=== PATIENT | male | born 1970 | race Caucasian/White ===

== ENCOUNTER 2017-12-02 12:24 | Emergency (ER) | payer BC ==
[2017-12-02 14:34] VITALS: BP 139/87
--- NOTE | 2017-12-02 16:03 | UC ---
Hip/Pelvis Pain - HPI Summary HPI Summary: 47 y/o male presents to the urgent care c/o Left hip pain and left lateral side of rib pain s/p fall on ice this morning around 1000AM. Pt reports pain is 9/ 10. He took an Ibuprofen 800mg PO after it happened and applied ice to alleviate symptoms. Pain is w/ breathing and movement. He is able to walk w/ mild limping. Pt reports he landed on his left side and he bruised left side of hip. Pt denies numbness or tingling sensation over the lower extremities, saddle anesthesia, urinary or fecal incontinence, abdominal pain, chest pain, SOB, calf pain, N/V/D - History Of Current Complaint Chief Complaint: UCTrauma Stated Complaint: HIP INJURY Time Seen by Provider: 12/02/17 16:02 Hx Obtained From: Patient Onset/Duration: Sudden Onset, Lasting Hours Timing: Constant Severity Initially: Moderate Severity Currently: Moderate Pain Intensity: 8 Pain Scale Used: 0-10 Numeric Location: Discrete At: - zLeft lateral side of ribs and left hip Character Of Pain: Sharp Aggravating Factor(s): Movement Alleviating Factor(s): Cold Associated Signs And Symptoms: Positive: Swelling, Bruising. Negative: Fever, Abdominal Pain, Knee Pain - Risk Factors Septic Arthritis Risk Factor: Negative - Allergies/Home Medications Allergies/Adverse Reactions: Allergies Allergy/AdvReac Type Severity Reaction Status Date / Time No Known Allergies Allergy Verified 12/02/17 14:29 PMH/Surg Hx/FS Hx/Imm Hx Previously Healthy: Yes - Pt denies PMHX - Surgical History Surgical History: Yes Surgery Procedure, Year, and Place: 1972 - hernia repair. wisdom teeth - Family History Known Family History: Positive: Cardiac Disease, Hypertension, Diabetes - Social History Occupation: Employed Full-time Lives: With Family Alcohol Use: None Substance Use Type: None Smoking Status (MU): Never Smoked Tobacco Review of Systems Constitutional: Negative Skin: Bruising - Left hip s/p fall Eyes: Negative ENT: Negative Respiratory: Negative Cardiovascular: Negative Gastrointestinal: Negative Genitourinary: Negative Motor: Negative Neurovascular: Negative Musculoskeletal: Other: - left lateral side of ribs pain and left hip pain s/p fall Neurological: Negative Psychological: Negative Is Patient Immunocompromised?: No All Other Systems Reviewed And Are Negative: Yes Physical Exam Triage Information Reviewed: Yes Vital Signs: Initial Vital Signs Temp 99.6 F 12/02/17 14:31 Pulse 94 12/02/17 14:31 Resp 16 12/02/17 14:31 BP 139/87 12/02/17 14:31 Pulse Ox 100 12/02/17 14:31 - Additional Comments Vital Signs Reviewed: Yes Appearance: Well-Appearing, No Pain Distress, Well-Nourished - male Eyes: Positive: Conjunctiva Clear - left eye blindness ENT: Positive: Normal ENT inspection, Hearing grossly normal, Pharynx normal, TMs normal, Uvula midline Neck: Positive: Supple, Nontender, No Lymphadenopathy Respiratory: Positive: Chest non-tender, Lungs clear, Normal breath sounds, No respiratory distress Cardiovascular: Positive: RRR, No Murmur, Pulses Normal, Brisk Capillary Refill. Chest: point tenderness over the left lateral side of the ribs at the level of R9-R12, mild swelling observed. Abdomen Description: Positive: Nontender, No Organomegaly, Soft. Negative: CVA Tenderness (R), CVA Tenderness (L) Bowel Sounds: Positive: Present Musculoskeletal: Positive: Strength Intact, Other: - LF Hip: Pt is able to ambulate without difficulty or assistance, limp, or antalgic gait. left hip w/ ecchymosis and brusing at the level of left iliac crest about 1.0cm in size. No erythema, warmth. No deformity, crepitus, or obvious asymmetry of the LF hip. No Tenderness to palpation over the symphysis pubis, ischial bone, trochanter, SI notch, buttocks, quadriceps, femoral triangle, inguinal ligament. Point tenderness on LEFT lateral side of the hip below the iliac crest. No inguinal lymphadenopathy. FROM limited due to pain. Distal motor and neurovascular status are intact. Neuro: Alert and oriented x 3. No acute neurological deficits. Speech is normal. Psychological: WNL Skin: Dry and warm Hip Injury Course/Dx - Course Course Of Treatment: 47 y/o male presents to the urgent care c/o Left hip pain and left lateral side of rib pain s/p fall on ice this morning around 1000AM. Pt reports pain is 9/10. He took an Ibuprofen 800mg PO after it happened and applied ice to alleviate symptoms. Pain is w/ breathing and movement. He is able to walk w/ mild limping. Pt reports he landed on his left side and he bruised left side of hip. Pt denies numbness or tingling sensation over the lower extremities, saddle anesthesia, urinary or fecal incontinence, abdominal pain, chest pain, SOB, calf pain, N/V/D. Hx obtained. PE performed. rib X-ray oredered: Impression: negative LF rib fracture or pneumothorax. Hip X-ray ordered: impression:No left hip fracture observed, bur B/L Kelgren & Lawrance grade 1 osteoarthritis of the hip observed. Advised RICE, constant deep breathings and Rx Naproxen PO for pain, If not improvement of symptoms to f/u with Orthopedic DR referral for further evaluation and treatment. Pt understood and agreed with D/C instructions - Differential Dx/Diagnosis Differential Diagnosis/HQI/PQRI: Contusion, Fracture, Sciatica, Sprain, Strain Provider Diagnoses: 1- Left Rib pain s/p fall. 2- Left hip pain s/p fall w/ left hip contusion. 3- B/L hip Osteoarthritis Discharge - Discharge Plan Condition: Stable Disposition: HOME Prescriptions: Naproxen [Naproxen 500 mg] 500 mg PO Q8H PRN #30 tab PRN Reason: Pain Patient Education Materials: Osteoarthritis (ED), Hip Pain (ED), Rib Contusion (ED) Forms: *Work Release Referrals: Marin Pascual MD [Primary Care Provider] - 1 Week Johnny Munson MD [Medical Doctor] - 1 Week Additional Instructions: 1-Please take medications as directed to alleviate pain and swelling. 2-Please apply ice, use the crutches to avoid weight bearing for long period of time. 3-Take deep breathing despite pain on your ribs 4- Please f/u with Orthopedic Dr Munson or your PCP in 1 week is not improvement of symptoms for further evaluation and treatment.
--- NOTE | 2017-12-02 16:51 | RAD ---
Indication: Lateral posterior LEFT rib pain post fall. Comparison: No relevant prior exams available on the [facility] [place] [facility] for comparison. Technique: PA chest and 3 dedicated LEFT rib views. Report: Elevated lung volumes and minimal prominence of interstitial markings. No alveolar consolidation, focal pulmonary lesion, pleural effusion, pneumothorax. The heart, pulmonary vasculature, and mediastinal contours are unremarkable. No LEFT rib fracture evident. Posterior inferior coastal margin skin marker noted indicating the site of clinical concern. Unremarkable soft tissue contours. IMPRESSION: Negative for LEFT rib fracture or pneumothorax.
--- NOTE | 2017-12-02 17:04 | RAD ---
Indication: LEFT hip pain post fall. Comparison: No relevant prior exams available on the [facility] [place] PACS for comparison. Technique: AP pelvis and AP and frog-leg lateral views LEFT hip. Report: The LEFT hip is normally located. No LEFT proximal femur or pelvic fracture or pelvic joint diastases evident. Bilateral hip osteophytic lipping without significant joint space narrowing. Pelvic phleboliths and vasectomy clips noted. Unremarkable soft tissue contours. IMPRESSION: 1. No radiographic evidence for LEFT hip fracture. 2. Bilateral Kellgren and Jos grade 1 osteoarthritis of the hips.
[2017-12-02] MEDS ORDERED: Ketorolac INJ* 30 MG/ML 1 ML VIAL IM ONE (17:15)
== END 2017-12-02 17:50 | disposition home or self-care (01) ==
LOC: UCEAST 12:24
DX: S70.02XA Contusion of left hip, initial encounter (principal); W00.0XXA Fall on same level due to ice and snow, initial encounter; Y93.9 Activity, unspecified; Y92.9 Unspecified place or not applicable; M25.552 Pain in left hip; R07.81 Pleurodynia; M16.0 Bilateral primary osteoarthritis of hip
CPT/HCPCS: 96372; 99213; G0463; J1885

== ENCOUNTER 2019-05-05 21:33 | Emergency (ER) | payer BC ==
[2019-05-05 21:42] VITALS: BP 138/85
[2019-05-05] MEDS ORDERED: Benzoin Compound STICK TOPICAL ONE (21:47)
--- NOTE | 2019-05-05 22:05 | UC ---
Laceration HPI - HPI Summary HPI Summary: 49 yo male lacerated his right middle finger on a can lid suspects his Td is UTD - History Of Current Complaint Chief Complaint: UCLaceration Stated Complaint: FINGER LAC Time Seen by Provider: 05/05/19 21:37 Hx Obtained From: Patient Laceration Location: Finger Mechanism Of Injury: Sharp Trauma Onset/Duration: Lasting Hours Severity: Mild Pain Intensity: 4 Pain Scale Used: 0-10 Numeric Aggravating Factors: Nothing Hands: 1 - lac 1.3 cm long - Allergies/Home Medications Allergies/Adverse Reactions: Allergies Allergy/AdvReac Type Severity Reaction Status Date / Time No Known Allergies Allergy Verified 05/05/19 21:43 PMH/Surg Hx/FS Hx/Imm Hx Previously Healthy: Yes - Surgical History Surgical History: Yes Surgery Procedure, Year, and Place: 1973 - hernia repair. wisdom teeth - Family History Known Family History: Positive: Cardiac Disease, Hypertension, Diabetes - Social History Alcohol Use: None Substance Use Type: None Smoking Status (MU): Never Smoked Tobacco - Immunization History Most Recent Tetanus Shot: thinks he's up to date Review of Systems All Other Systems Reviewed And Are Negative: Yes Constitutional: Positive: Negative Skin: Positive: Negative Eyes: Positive: Negative ENT: Positive: Negative Respiratory: Positive: Negative Cardiovascular: Positive: Negative Gastrointestinal: Positive: Negative Genitourinary: Positive: Negative Motor: Positive: Negative Neurovascular: Positive: Negative Musculoskeletal: Positive: Negative Neurological: Positive: Negative Psychological: Positive: Negative Physical Exam Triage Information Reviewed: Yes Appearance: Well-Appearing, No Pain Distress, Well-Nourished Vital Signs: Initial Vital Signs Temp 98.8 F 05/05/19 21:37 Pulse 54 05/05/19 21:37 Resp 16 05/05/19 21:37 BP 138/85 05/05/19 21:37 Pulse Ox 99 05/05/19 21:37 Vital Signs Reviewed: Yes Eyes: Positive: Conjunctiva Clear ENT: Positive: Hearing grossly normal. Negative: Nasal congestion, Nasal drainage, Tonsillar swelling, Tonsillar exudate, Hoarse voice Neck: Positive: Supple, Nontender Respiratory: Positive: Lungs clear, Normal breath sounds, No respiratory distress, No accessory muscle use Cardiovascular: Positive: RRR, No Murmur Musculoskeletal: Positive: ROM Intact, No Edema Neurological: Positive: Alert, Fatigued Psychological Exam: Normal Skin Exam: Normal Procedures - Laceration/Wound Repair 1 Location: Other - finger Description: Linear Length, Depth and Shape: 1.3cm long, linear, 2 mm wide, 2 mm deep Betadine Prep?: No Irrigated w/ Saline (ccs): 200 Laceration/Wound Explored: clean Closure: Skin Adhesive, SteriStrips Laceration Course/Dx - Diagnosis Provider Diagnosis: Laceration of right middle finger Discharge - Sign-Out/Discharge Documenting (check all that apply): Patient Departure All imaging exams completed and their final reports reviewed: No Studies - Discharge Plan Condition: Stable Disposition: HOME Patient Education Materials: Skin Adhesive Care (ED), Steristrips (ED) Referrals: Marin Pascual MD [Primary Care Provider] - Additional Instructions: call for any questions return for any problems - Billing Disposition and Condition Condition: STABLE Disposition: Home
== END 2019-05-05 22:12 | disposition home or self-care (01) ==
LOC: UCEAST 21:33
DX: S61.212A Laceration without foreign body of right middle finger without damage to nail, initial encounter (principal); W26.8XXA Contact with other sharp object(s), not elsewhere classified, initial encounter; Y93.G9 Activity, other involving cooking and grilling; Y92.010 Kitchen of single-family (private) house as the place of occurrence of the external cause; Y99.8 Other external cause status
CPT/HCPCS: 12001; 99211; G0463

== ENCOUNTER 2024-08-14 13:43 | Inpatient (IN) ==
[2024-08-14 16:53] LABS: Albumin 3.6 g/dL (3.2-5.2); Albumin/Globulin Ratio 1.5 (1-3); C Reactive Protein 113.7 mg/L (<8.01); Calcium 7.9 mg/dL (8.6-10.3); Creatinine, Serum 1.01 mg/dL (0.67-1.17); Globulin 2.4 g/dL (2-4); Potassium 4.4 mmol/L (3.5-5.0); Total Bilirubin 1.4 mg/dL (0.2-1.0); eGFR CKD-EPI 88.4 (>60)
[2024-08-14 17:08] LABS: ABS Lymphocytes 1.5 10^3/uL (1.0-4.8); ABS Monocytes 0.6 10^3/uL (0.0-1.1); ABS Neutrophils 2.2 10^3/uL (1.5-7.6); ABS Nucleated RBC 0.02 10^3/ul; Basophilic Stippling 1+; Eosinophil % 0.3 %; Hematocrit 34.9 % (38-53); Hemoglobin 11.8 g/dL (13.2-16.3); Lymphocyte % 34.1 %; Mean Corpuscular Hemoglobin 30.6 pg (27-33); Mean Corpuscular Hgb Conc 33.9 g/dL (31-36); Mean Corpuscular Volume 90.3 fL (80-97); Nucleated Red Blood Cells % 0.6 %/100WBC (0.0-0.8); Parasites Present; Platelet Count 41 10^3/uL (150-450); Red Blood Count 3.86 10^6/uL (4.06-5.63); Red Cell Distribution Width 13.5 % (12-17); White Blood Count 4.4 10^3/uL (3.6-10.2)
[2024-08-14 21:35] LABS: RBC Parasite Smear POSITIVE (No Parasite)
[2024-08-15 02:09] LABS: Osmolality Serum 260 mOsm/kg (275-295)
[2024-08-15 03:07] LABS: Urine Osmo 338 mOsm/kg (150-1150)
[2024-08-15 05:53] LABS: Hematocrit 33.1 % (38-53); Hemoglobin 11.3 g/dL (13.2-16.3); Mean Corpuscular Hemoglobin 30.3 pg (27-33); Platelet Count 42 10^3/uL (150-450); Red Blood Count 3.72 10^6/uL (4.06-5.63); Red Cell Distribution Width 13.7 % (12-17); White Blood Count 5.4 10^3/uL (3.6-10.2)
[2024-08-15 06:32] LABS: Calcium 7.9 mg/dL (8.6-10.3); Creatinine, Serum 0.98 mg/dL (0.67-1.17); Magnesium 1.7 mg/dL (1.9-2.7); Potassium 4.7 mmol/L (3.5-5.0); eGFR CKD-EPI 91.6 (>60)
[2024-08-15] MEDS: Enoxaparin 40 MG/0.4 ML SYR SUBCUT SCH (07:40)
[2024-08-15] MEDS: Magnesium Sulfate 2 gm BAG 2 GM/50 ML BAG IVPB ONE (10:13)
[2024-08-15 17:20] LABS: Calcium 7.8 mg/dL (8.6-10.3); Creatinine, Serum 1.03 mg/dL (0.67-1.17); Potassium 4.7 mmol/L (3.5-5.0); eGFR CKD-EPI 86.3 (>60)
[2024-08-16 07:38] LABS: Calcium 7.6 mg/dL (8.6-10.3); Creatinine, Serum 0.95 mg/dL (0.67-1.17); Potassium 4.6 mmol/L (3.5-5.0); eGFR CKD-EPI 95.1 (>60)
[2024-08-16 08:47] LABS: ABS Lymphocytes 1.7 10^3/uL (1.0-4.8); ABS Monocytes 0.5 10^3/uL (0.0-1.1); ABS Neutrophils 1.6 10^3/uL (1.5-7.6); Basophilic Stippling 1+; Eosinophil % 0.9 %; Hematocrit 28.9 % (38-53); Hemoglobin 10.1 g/dL (13.2-16.3); Lymphocyte % 43.9 %; Mean Corpuscular Hemoglobin 31.1 pg (27-33); Mean Corpuscular Hgb Conc 34.8 g/dL (31-36); Mean Corpuscular Volume 89.3 fL (80-97); Mean Platelet Volume 12.3 fL (7.5-11.2); Nucleated Red Blood Cells % 0.1 %/100WBC (0.0-0.8); Platelet Count 35 10^3/uL (150-450); Red Blood Count 3.24 10^6/uL (4.06-5.63); Red Cell Distribution Width 13.7 % (12-17)
[2024-08-16 09:28] LABS: Albumin 3.2 g/dL (3.2-5.2); Albumin/Globulin Ratio 1.5 (1-3); Direct Bilirubin 0.4 mg/dL (0.03-0.18); Globulin 2.1 g/dL (2-4); Indirect Bilirubin 1.2 mg/dL (0.3-1.0); Total Bilirubin 1.6 mg/dL (0.2-1.0); Total Protein 5.3 g/dL (6.4-8.9)
[2024-08-16 14:41] LABS: Creatinine, Serum 0.97 mg/dL (0.67-1.17); Potassium 4.3 mmol/L (3.5-5.0); eGFR CKD-EPI 92.8 (>60)
[2024-08-16 17:49] LABS: Adenovirus Undetected (Undetected); Bordetella parapertussis Undetected (Undetected); Bordetella pertussis Undetected (Undetected); Chlamydophila pneumoniae Undetected (Undetected); Coronavirus 229E Undetected (Undetected); Coronavirus HKU1 Undetected (Undetected); Coronavirus NL63 Undetected (Undetected); Coronavirus OC43 Undetected (Undetected); Human Metapneumovirus Undetected (Undetected); Human Rhinovirus/Enterovirus Detected (Undetected); Influenza A Undetected (Undetected); Influenza B Undetected (Undetected); Mycoplasmoides pneumoniae Undetected (Undetected); Parainfluenza Virus 1 Undetected (Undetected); Parainfluenza Virus 2 Undetected (Undetected); Parainfluenza Virus 3 Undetected (Undetected); Parainfluenza Virus 4 Undetected (Undetected); Respiratory Syncytial Virus Undetected (Undetected); Specimen Source NASOPHARYNGEAL SWAB
[2024-08-16] MEDS: Fluticasone NASAL SPRAY 50MCG 16 gm SPRAY BTL BOTH NARES SCH (20:34)
[2024-08-17 07:30] LABS: ABS Lymphocytes 2.3 10^3/uL (1.0-4.8); ABS Monocytes 0.6 10^3/uL (0.0-1.1); ABS Nucleated RBC 0.01 10^3/ul; Eosinophil % 0.4 %; Hematocrit 32.5 % (38-53); Hemoglobin 10.8 g/dL (13.2-16.3); Mean Corpuscular Hemoglobin 30.8 pg (27-33); Mean Corpuscular Hgb Conc 33.4 g/dL (31-36); Mean Corpuscular Volume 92.4 fL (80-97); Mean Platelet Volume 11.9 fL (7.5-11.2); Nucleated Red Blood Cells % 0.2 %/100WBC (0.0-0.8); Platelet Count 52 10^3/uL (150-450); Red Blood Count 3.52 10^6/uL (4.06-5.63); Red Cell Distribution Width 14.4 % (12-17)
[2024-08-17 07:31] LABS: RBC Morphology Normal (Normal)
[2024-08-17 07:35] LABS: Calcium 8.1 mg/dL (8.6-10.3); Creatinine, Serum 0.9 mg/dL (0.67-1.17); Potassium 4.3 mmol/L (3.5-5.0); eGFR CKD-EPI 101.5 (>60)
[2024-08-17 14:48] LABS: Calcium 8.2 mg/dL (8.6-10.3); Creatinine, Serum 0.91 mg/dL (0.67-1.17); Potassium 4.4 mmol/L (3.5-5.0); eGFR CKD-EPI 100.2 (>60)
[2024-08-17 20:21] LABS: Urine Potassium Concentration 41.4 mmol/L
[2024-08-17 20:54] LABS: Urine Osmo 710 mOsm/kg (150-1150)
[2024-08-18 05:21] VITALS: BP 128/77
[2024-08-18 07:10] LABS: Calcium 8.4 mg/dL (8.6-10.3); Creatinine, Serum 0.87 mg/dL (0.67-1.17); Potassium 4.4 mmol/L (3.5-5.0); eGFR CKD-EPI 102.5 (>60)
[2024-08-18 08:32] LABS: ABS Eosinophils 0.1 10^3/uL (0.0-0.5); ABS Lymphocytes 2.4 10^3/uL (1.0-4.8); ABS Monocytes 0.6 10^3/uL (0.0-1.1); ABS Neutrophils 2.3 10^3/uL (1.5-7.6); Eosinophil % 0.9 %; Hematocrit 29.7 % (38-53); Hemoglobin 10.3 g/dL (13.2-16.3); Lymphocyte % 44.9 %; Mean Corpuscular Hemoglobin 30.8 pg (27-33); Mean Corpuscular Hgb Conc 34.6 g/dL (31-36); Mean Platelet Volume 11.3 fL (7.5-11.2); Nucleated Red Blood Cells % 0.1 %/100WBC (0.0-0.8); Platelet Count 84 10^3/uL (150-450); RBC Morphology Normal (Normal); Red Blood Count 3.33 10^6/uL (4.06-5.63); Red Cell Distribution Width 14.2 % (12-17); White Blood Count 5.4 10^3/uL (3.6-10.2)
[2024-08-18 21:50] LABS: Anaplasma phagocytophilum Negative (Negative); B. miyamotoi PCR, B Negative (Negative); Babesia divergens/MO-1 Negative (Negative); Babesia ducani Negative (Negative); Ehrlichia chaffeensis Negative (Negative); Ehrlichia ewingii/canis Negative (Negative); Ehrlichia muris eauclairensis Negative (Negative)
== END 2024-08-18 13:10 | disposition home or self-care (01) | DRG 868 ==
LOC: EDHOLD 13:43 → ED 13:43 → SUATTDRO 21:34 → OBSVTOIN 21:34 → MED 08-15 12:21
PROVIDERS: ADMIT Student in an Organized Health Care Education/Training Program; ATTEND Hospitalist